=== PATIENT | female | born 1955 | race Caucasian/White ===

== ENCOUNTER → 2024-01-19 | Outpatient (CLI) | payer MEDICARE, MEDICAID, SELFPAY ==
[2024-01-19 21:38] LABS: Collection Type, Urine Clean Catch; Squamous Epithelial Cell,Urine 0 /hpf (0-5)
[2024-01-19 21:48] LABS: Bilirubin,Urine Negative (Negative); Blood,Urine Trace (Negative); Clarity,Urine Turbid (Clear/Hazy); Color,Urine Lt-Yellow (Lt Yel-Yel); Glucose, Urine Negative (Negative); Ketones,Urine Negative (Negative); Leukocyte Esterase,Urine Positive (Negative); Nitrite,Urine Positive (Negative); PH,Urine 7.5 (5.0-7.0); Protein,Urine Negative (Neg - Trace); RBC,Urine 2 /hpf (0-3); Specific Gravity,Urine 1.009 (1.001-1.035); Urobilinogen,Urine Negative mg/dL (0.0-1.0); WBC,Urine 30 /hpf (0-5)
[2024-01-19 21:49] LABS: Culture Indicated,Urine Yes
== END | disposition home or self-care (01) ==
LOC: SLAB 21:18
PROVIDERS: PCP Hospitalist; Referring Provider Hospitalist; Visit Provider Hospitalist
DX: N39.0 Urinary tract infection, site not specified (principal)
CPT/HCPCS: 81001; 87077; 87086; 87186

== ENCOUNTER 2024-01-26 20:41 | Emergency (ER) | payer MEDICARE, MEDICAID, SELFPAY ==
[2024-01-26 20:52] VITALS: PULSE 101
--- NOTE | 2024-01-26 20:52 | PD.EDADULT ---
ED General RME/HPI General Chief complaint: Suicidal Stated complaint: SI Time Seen by Provider: 01/26/24 20:51 Arrival date/time: 01/26/24 20:41 CC: Suicidal ideation HPI patient told staff at the assisted care facility that she wanted to hang herself with a call button cord, when approached the patient stated to me that she wanted to commit suicide. Review of the chart shows the patient has schizo affective disorder. EMS report belligerence C but stable vital signs and route Related Data Home Medications ?Medication ?Instructions ?Recorded ?Confirmed levothyroxine 50 mcg tablet 50 mcg PO QDAY 11/22/20 03/12/23 lorazepam 0.5 mg tablet 0.5 mg PO Q8H PRN Anxiety 11/22/20 03/12/23 olanzapine 20 mg tablet 20 mg PO HS 11/22/20 02/09/21 quetiapine 50 mg tablet 50 mg PO HS 11/22/20 02/09/21 tramadol 50 mg tablet 50 mg PO Q6H PRN Pain 11/22/20 02/09/21 vilazodone 10 mg tablet (Viibryd) 10 mg PO QDAY 11/22/20 02/09/21 cariprazine 3 mg capsule (Vraylar) mg 03/12/23 dicyclomine 10 mg capsule 10 mg PO TID 03/12/23 03/12/23 vilazodone 10 mg tablet 10 mg PO QDAY 03/12/23 03/12/23 Previous Rx's ?Medication ?Instructions ?Recorded hydrocodone 5 mg-acetaminophen 325 1 tab PO Q8H PRN pain #10 tabs 03/06/23 mg tablet polyethylene glycol 3350 17 4 g PO QDAY #510 grams 07/21/23 gram/dose oral powder (Gavilax) sennosides 8.6 mg tablet (senna) 8.6 mg PO QDAY PRN constipation #0 07/21/23 tabs Allergies Allergy/AdvReac Type Severity Reaction Status Date / Time morphine Allergy Intermediate Redness of Verified 07/18/23 18:11 Skin Review of Systems Review of Systems Narrative Review of Systems: Patient denies any pain Past Medical History Past Medical History NEUROLOGIC: Positive Neurological Disorders and Head Trauma; Negative Seizures CARDIAC: Negative Cardiac Disorders or Congestive Heart Failure RESPIRATORY: Negative Chronic Obstructive Pulmonary Disease (COPD) or Asthma GASTROINTESTINAL: Negative Gastrointestinal Disorders GENITOURINARY: Negative Genitourinary Disorders or Renal Disease REPRODUCTIVE: Negative Endometriosis, Pelvic Inflammatory Disease, Previous Pregnancies or Uterine Prolapse MUSCULOSKELETAL: Negative Musculoskeletal Disorders ENT: Positive Head Trauma ENDOCRINE: Positive Endocrine Disorders and Hypothyroidism; Negative Diabetes Mellitus Type 1 or Diabetes Mellitus Type 2 HEMATOLOGIC: Negative Blood Disorders or Sickle Cell Disease PSYCHO/SOCIAL: Positive Schizophrenia, Bipolar Disorder and Anxiety OTHER HISTORY: Positive Developmental Delay and Blood Transfusions; Negative Autoimmune Disease, Blood Transfusion Reaction, Anesthesia Reactions, MRSA, VRSA, Vancomycin-Resistant Enterococci or Cancer Surgical History SURGICAL: Positive Tubal Ligation Social History SMOKING STATUS: Never smoker SUBSTANCE USE: does not use ED Exam Narrative Physical exam: [General: Frail, deconditioned but not in any acute distress Head normocephalic HEENT: Within acceptable limits Neck is supple nontender Chest equal chest rise nontender to palpation Respiratory: Clear to auscultation no wheezes crackles or rubs CV: Rate rhythm is regular no murmurs rubs or clicks Abdomen is soft nontender no masses positive bowel sounds all 4 quadrants Back: No CVA tenderness no spinous process tenderness from cervical spine thoracic and lumbar spine Skin: Intact no petechiae rash induration ulceration or crepitus Extremities: Moving all extremity against resistance cap refill less than 2 seconds neurosensory intact Neuro: Awake alert oriented x 2, person and place, Glascow coma 15 no focal deficits] Course Quality Measures VTE prophylaxis Orders Category Date Time Status Drug Screen,Urine Stat Lab 01/26/24 21:20 Completed Urinalysis Stat Lab 01/26/24 21:20 Completed DiphenhydrAMINE INJ [Benadryl Inj] Med 01/26/24 21:15 Discontinued 25 mg IM X1 ONE Fluconazole [Diflucan] Med 01/27/24 18:10 Discontinued 200 mg PO X1 ONE Haloperidol Lactate [Haldol Inj] Med 01/26/24 21:15 Discontinued 5 mg IM X1 ONE LORazepam [Ativan Inj] Med 01/26/24 21:15 Discontinued 2 mg IM X1 ONE LORazepam [Ativan Inj] Med 01/26/24 23:50 Discontinued 2 mg IM X1 ONE Vital Signs Vital signs: Vital Signs Temperature 98.1 F 01/26/24 21:02 Pulse Rate 102 H 01/26/24 21:02 Respiratory Rate 18 01/26/24 21:02 Blood Pressure 125/73 01/26/24 21:02 Pulse Oximetry (%) 99 01/26/24 21:02 Oxygen Delivery Method Room Air 01/26/24 21:02 MDM Patient data External records reviewed:: [facility] previous records and EMS form Clinical information provided by:: none Social determinants that could affect healthcare access:: mental health Patient has the following chronic illnesses:: Schizoaffective disorder major depressive order recent hip fracture anxiety How is presenting disease/condition affected by chronic disease/condition?: exacerbated by Evaluation data The following diagnostics were reviewed and interpreted by me:: lab results, radiology exam(s) and EKG tracing(s) Lab and/or radiology exams considered but not ordered:: U tox is negative Interpretation Summary: Suicidal ideation but most likely anger outbursts secondary to dementia Medications Medications considered but not ordered:: None Medication administrations:: Medication Administration History Discontinued Medications Diphenhydramine HCl (Diphenhydramine Inj 50 Mg/Ml Vial) 25 mg IM X1 ONE Stop: 01/26/24 21:16 Last Admin: 01/26/24 21:29 Dose: 25 mg Documented By: CB Fluconazole (Fluconazole 100 Mg Tablet) 200 mg PO X1 ONE Stop: 01/27/24 18:11 Last Admin: 01/27/24 19:38 Dose: 200 mg Documented By: SF Haloperidol Lactate (Haloperidol Lact Inj 5 Mg/Ml Vial) 5 mg IM X1 ONE Stop: 01/26/24 21:16 Last Admin: 01/26/24 21:29 Dose: 5 mg Documented By: CB Lorazepam (Lorazepam 2 Mg/Ml Vial) 2 mg IM X1 ONE Stop: 01/26/24 21:16 Last Admin: 01/26/24 21:30 Dose: 2 mg Documented By: CB Lorazepam (Lorazepam 2 Mg/Ml Vial) 2 mg IM X1 ONE Stop: 01/26/24 23:51 Last Admin: 01/27/24 00:39 Dose: 2 mg Documented By: DB None Consultations Consultation(s) initiated? (list below): No Diagnosis Differential Diagnosis ED Complaint MDM: Suicidal ideation suicide attempt attention seeking behavior Most likely diagnosis given after review of the tests above:: Attention seeking behavior Admission Indicated Admission indicated?: not indicated Explain why admission is indicated or not indicated:: Stable for discharge Admission Request Was there a request for admission?: No Disposition Plan Disposition Plan: Discharge Discharge Attestation Discharge Attestation: The patient and all family members were given an opportunity to ask questions and understood the discharge instructions. Discharge instructions specifically effects, indications for sooner follow up or return to the emergency department, and the expected course of current diagnosis. Patient condition: Stable Medical Decision Making Differential Diagnosis Differential Diagnosis: Suicidal ideation suicide attempt attention seeking behavior Lab Data Labs: Lab Results 01/26/24 Range/Units 21:20 Ur Collection Type Clean Catch Urine Color Yellow (Lt Yel-Yel) Urine Clarity Turbid A (Clear/Hazy) Urine pH 7.5 H (5.0-7.0) Ur Specific [place] 1.027 (1.001-1.035) Urine Protein Trace (Neg - Trace) Urine Glucose (UA) Negative (Negative) Urine Ketones Negative (Negative) Urine Blood Negative (Negative) Urine Nitrite Positive (Negative) Urine Bilirubin Negative (Negative) Urine Urobilinogen (Auto) Negative (0.0-1.0) mg/dL Ur Leukocyte Esterase Positive (Negative) Urine RBC 5 H (0-3) /hpf Urine WBC 87 H (0-5) /hpf Ur Squamous Epith Cells 0 (0-5) /hpf Urine Bacteria None (None) Urine Yeast (Budding) Present A (None) Urine Opiates Screen Positive A (Negative) Urine Fentanyl Screen Negative (Negative) Ur Barbiturates Screen Negative (Negative) U Amphetamin/Meth Scrn Negative (Negative) U Benzodiazepines Scrn Negative (Negative) U Cocaine Metab Screen Negative (Negative) U Marijuana (THC) Screen Negative (Negative) Discharge Plan Plan Patient Disposition: Xfer Skilled Nsg Fac (SNF) Prescriptions/Referrals Prescriptions/Med Rec: No Action tramadol 50 mg tablet 50 mg PO Q6H PRN (Reason: Pain) Patient Comments: TAKE 1 TABLET BY MOUTH EVERY 6 HOURS NEEDED FOR PAIN lorazepam 0.5 mg tablet 0.5 mg PO Q8H PRN (Reason: Anxiety) Patient Comments: TAKE 1 TABLET BY MOUTH EVERY 8 HOURS NEEDED FOR ANXIETY levothyroxine 50 mcg tablet 50 mcg PO QDAY Patient Comments: TAKE 1 TABLET BY MOUTH EVERY DAY olanzapine 20 mg tablet 20 mg PO HS Patient Comments: TAKE 1 TABLET BY MOUTH EVERY NIGHT AT BEDTIME quetiapine 50 mg tablet 50 mg PO HS Patient Comments: TAKE 1 TABLET BY MOUTH EVERY NIGHT AT BEDTIME Viibryd 10 mg tablet 10 mg PO QDAY Patient Comments: TAKE 1 TABLET BY MOUTH EVERY DAY polyethylene glycol 3350 [Gavilax] 17 gram/dose powder 4 g PO QDAY Qty: 510 0RF sennosides [senna] 8.6 mg tablet 8.6 mg PO QDAY PRN (Reason: constipation) Qty: 0 0RF hydrocodone-acetaminophen 5-325 mg tablet 1 tab PO Q8H MDD 3 PRN (Reason: pain) Qty: 10 0RF dicyclomine 10 mg capsule 10 mg PO TID Patient Comments: TAKE 1 CAPSULE BY MOUTH THREE TIMES DAILY vilazodone 10 mg tablet 10 mg PO QDAY Patient Comments: TAKE 1 TABLET BY MOUTH EVERY DAY WITH FOOD Vraylar 3 mg capsule Patient Comments: TAKE 1 CAPSULE BY MOUTH EVERY DAY . STOP 1.5 MG Referrals: No Primary/Family,Physician [Primary Care Provider] - In 1 week Problem List Clinical Impression: Attention seeking behavior Patient/Caregiver Discharge Instructions Print Language: Estonian Stand Alone Forms: [facility] Award Info., Patient Portal Info Letter PA/[employer] Supervising Physician PA/[employer] Supervising Physician: Kan Garsia ENP
[2024-01-26 21:02] VITALS: BP 125/73; PULSE 102; RESP 18; TEMP 36.7; O2SAT 99
[2024-01-26 21:20] VITALS: BMI 16.6
[2024-01-26] MEDS: DiphenhydrAMINE INJ 50 MG/ML VIAL 25 MG IM (21:29)
[2024-01-26] MEDS: HALOPERIDOL LACT INJ 5 MG/ML VIAL IM (21:29)
[2024-01-26] MEDS: LORazepam 2 MG/ML VIAL IM (21:30)
[2024-01-26 21:43] LABS: Collection Type, Urine Clean Catch; Squamous Epithelial Cell,Urine 0 /hpf (0-5)
[2024-01-26 22:21] LABS: Bilirubin,Urine Negative (Negative); Blood,Urine Negative (Negative); Budding Yeast,Urine Present; Clarity,Urine Turbid (Clear/Hazy); Color,Urine Yellow (Lt Yel-Yel); Glucose, Urine Negative (Negative); Ketones,Urine Negative (Negative); Leukocyte Esterase,Urine Positive (Negative); Nitrite,Urine Positive (Negative); PH,Urine 7.5 (5.0-7.0); Protein,Urine Trace (Neg - Trace); RBC,Urine 5 /hpf (0-3); Specific Gravity,Urine 1.027 (1.001-1.035); Urobilinogen,Urine Negative mg/dL (0.0-1.0); WBC,Urine 87 /hpf (0-5)
[2024-01-26 22:27] LABS: Amphetamine/Methamp Scrn,U Negative (Negative); Barbiturate Screen,Urine Negative (Negative); Benzodiazepines Screen,Urine Negative (Negative); Benzoylecgonine Screen, Ur Negative (Negative); Fentanyl Screen,Urine Negative (Negative); Opiate Screen,Urine Positive (Negative); THC Screen,Urine Negative (Negative)
[2024-01-26 23:34] VITALS: BP 144/73; PULSE 67; RESP 19; TEMP 36.4; O2SAT 97
--- NOTE | 2024-01-26 23:40 | PD.EDADDENDU ---
Emergency Room Addendum Addendum Narrative: 11:[address] Brandt's note: This patient had a B-52 given earlier to her but now she is still awake and screaming. Therefore I will repeat her Ativan 2 mg IM.
--- NOTE | 2024-01-26 23:46 | PD.EDADDENDU ---
Emergency Room Addendum Addendum Narrative: 224: Care assumed from Kan Garsia NP. Past medical, surgical, social and family history reviewed. Vitals and home medications reviewed. Results and treatment plan discussed. I will assume the care of the patient at this time and will follow the patient, pending crisis evaluation in the morning. Please refer to the emergency department record for history and examination from initial visit. Patient was placed in observation for treatment and monitoring of psychiatric symptoms, at 2240 01/26/2024. Symptoms consist of suicidal ideation and depression. Treatment plan includes psychiatric consult, reassessments, and possible placement into psychiatric facility. The patient had access and provided personal hygiene, shower, food, water, and daily medications. 11:[address] Brandt's note: This patient had a B-52 given earlier to her but now she is still awake and screaming. Therefore I will repeat her Ativan 2 mg IM.
[2024-01-27] VITALS: BP 138/77; PULSE 70; RESP 18; TEMP 36.6; O2SAT 96
[2024-01-27] MEDS: LORazepam 2 MG/ML VIAL IM (00:39)
[2024-01-27 04:00] VITALS: BP 150/72; PULSE 72; RESP 18; O2SAT 97
--- NOTE | 2024-01-27 06:29 | PD.EDADDENDU ---
Emergency Room Addendum <Bridgett Suarez - Last Filed: 01/27/24 09:47> Addendum Narrative: [address] Brandt, the previous shift emergency physician. Past medical, surgical, social and family history reviewed. Vitals and home medications reviewed. Results and treatment plan discussed. The patient was placed in ED observation care at 0600 01/27/2024, pending mental health evaluation. Please refer to the emergency department record for history and examination.? While in ED observation the pt will have access to water, food, and personal hygiene. If the pt takes home medication(s), they will be continued in ED observation. <Rere Morin - Last Filed: 01/27/24 17:29> Addendum Narrative: [address] Brandt, the previous shift emergency physician. Past medical, surgical, social and family history reviewed. Vitals and home medications reviewed. Results and treatment plan discussed. The patient was placed in ED observation care at 0600 01/27/2024, pending mental health evaluation. Please refer to the emergency department record for history and examination.? While in ED observation the pt will have access to water, food, and personal hygiene. If the pt takes home medication(s), they will be continued in ED observation. 1800: Patient was signed out to Dr. Brandt. Past medical, surgical, social and family history reviewed. Vitals and home medications reviewed. Results and treatment plan discussed. They will assume the care of the patient at this time and will follow the patient, pending mental health evaluation and final disposition.
--- NOTE | 2024-01-27 07:00 | PC.NURSE ---
In to assess pt. Pt is resting quietly at this time without any complaints. Plan for crisis eval. Plan of care ongoing.
--- NOTE | 2024-01-27 10:13 | PC.CC ---
Addendum entered by Mendez Newman II 01/27/24 19:21: 1857-Call to [employer] to request zoniarney transport back to [facility]. Reference # [id number]. PCS and face sheet uploaded to [employer]. Pending transport ETA. Addendum entered by Mendez Newman ARA 01/27/24 18:46: 1840-ASW advised by staff that pt is awake and is requesting to return home. ASW met with pt at bedside, introducing self and role in pt care. Initially pt being uncooperative, only stating she wanted to return home. ASW inquired what brought pt to ED? Pt stated that ASW should have read her chart to know why she is here. ASW explained that pts chart has been read and that ASW needs pt to provide details as to what brought her to the ED. Pt stated that she said she wanted to harm herself. ASW attempted to assess if pt is currently having thoughts of wanting to harm herself. Pt again stated she wants to return home. ASW confirmed understanding pts desire to return home, but requested that pt participate in assessment. Pt stopped responding at this time. TIER TRUCK DRIVER CC attempted to redirect and pt would not respond. ASW ended encounter at this time. Original Note: Pt Augustina Pizarro is a 68 yr old female to ED from [facility] for SI. Pt sent to ED for voluntary crisis evaluation. ASW has attempted to meet with pt x2 at bedside. First attempt pt did not respond to name being called. Second attempt pt is noted to be very sleepy. From revie of chart pt given B-52 and Ativan. Plan is to allow pt to sleep, to engage her in evaluation. Pt is developmentally delayed and a client of [facility]. Pt placed in SNF setting following a broken hip.
[2024-01-27 11:10] VITALS: BP 145/76; PULSE 75; RESP 16; TEMP 36.6; O2SAT 99
[2024-01-27 14:22] VITALS: BP 124/87; PULSE 72; RESP 20; TEMP 36.6; O2SAT 100
[2024-01-27 18:40] VITALS: BP 135/79; PULSE 77; RESP 19; TEMP 36.6; O2SAT 99
--- NOTE | 2024-01-27 19:13 | PC.CC ---
Pt Augustina Pizarro is a 68 yr old female to ED from [facility], for SI. Pt reported to staff that she wanted to wrap a call light cord around her neck to harm herself. Pt has been medically cleared for crisis evaluation at this time. Pt with a hx of developmental delay and is a current client of [facility]. Pt with hx of schizophrenia. ASW met with pt at bedside, introducing self and role in pt care. Initially pt did not want to engage in assessment, but consented when ASW informed pt that she will need to participate if she is to be D/c home. Pt states she made the comment as she feels no one cares for her. ASW assessed if pt is currently experiencing any SI/HI to which pt denies. ASW assessed if pt is experiencing any A/VH, pt again denied. ASW assessed if pt is happy to be alive at this time. Pt states she is happy to be alive and would like to return home. 1856-Call to CRIMINAL INVESTIGATOR Eugenia Joiner who is in agreement with SP, as long as [facility] is willing to accept pt back. ASW spoke with SW for [facility], who is in agreement for pt to return back to [facility]. Per SW, pt began making statements of self harm when she learned that her short term stay with [facility], will likely result in a permanent situation. ASW spoke with pt who is in agreement to return back to SNF at this time.
[2024-01-27] MEDS: FLUCONAZOLE 100 MG TABLET 200 MG PO (19:38)
[2024-01-27 20:03] VITALS: BP 137/86; PULSE 89; RESP 18; TEMP 36.7; O2SAT 95
== END 2024-01-27 20:23 | disposition skilled nursing facility (03) ==
PROVIDERS: Registered Nurse General Practice; Emergency Provider Emergency Medicine
DX: F60.4 Histrionic personality disorder (principal)
CPT/HCPCS: 80307; 81001; 96127; 96372; 99285; J1200; J1630; J2060; A9270

== ENCOUNTER → 2024-03-06 | Outpatient (CLI) | payer MEDICARE, MEDICAID, SELFPAY ==
[2024-03-06 21:17] LABS: Collection Type, Urine Voided; Squamous Epithelial Cell,Urine 0 /hpf (0-5)
[2024-03-06 21:31] LABS: Bilirubin,Urine Negative (Negative); Blood,Urine Negative (Negative); Clarity,Urine Turbid (Clear/Hazy); Color,Urine Yellow (Lt Yel-Yel); Glucose, Urine Negative (Negative); Ketones,Urine 1+ (Negative); Leukocyte Esterase,Urine Positive (Negative); Nitrite,Urine Positive (Negative); PH,Urine 7.5 (5.0-7.0); Protein,Urine 1+ (Neg - Trace); RBC,Urine 3 /hpf (0-3); Specific Gravity,Urine 1.028 (1.001-1.035); Triple Phosphate Crystal,Urine 2+; Urobilinogen,Urine Negative mg/dL (0.0-1.0); WBC,Urine 60 /hpf (0-5)
[2024-03-06 21:33] LABS: Culture Indicated,Urine Yes
== END | disposition home or self-care (01) ==
LOC: SLDO 20:37
PROVIDERS: PCP Family Medicine; Referring Provider Family Medicine; Visit Provider Family Medicine
DX: F33.1 Major depressive disorder, recurrent, moderate (principal); M62.81 Muscle weakness (generalized); F25.0 Schizoaffective disorder, bipolar type; Z47.89 Encounter for other orthopedic aftercare
CPT/HCPCS: 81001; 87077; 87086; 87186